=== PATIENT | male | born 1970 | race Caucasian/White ===

== ENCOUNTER 2021-08-07 11:23 | Emergency (ER) | payer OTHER ==
[2021-08-07] MEDS ORDERED: BACTROBAN OINT22 GM EXT (12:33)
== END 2021-08-07 12:45 | disposition home or self-care (01) ==
LOC: ER1 11:23
DX: S80.812A Abrasion, left lower leg, initial encounter (principal); F19.10 Other psychoactive substance abuse, uncomplicated; I10 Essential (primary) hypertension; F17.200 Nicotine dependence, unspecified, uncomplicated; X58.XXXA Exposure to other specified factors, initial encounter
CPT/HCPCS: 99282